=== PATIENT | female | born 1970 | race Asian ===

== ENCOUNTER 2017-08-17 13:35 | Emergency (ER) | payer MEDICAID, OTHER ==
[~2017-08-17] VITALS: Ht 152.4 cm; Wt 75.5 kg
[2017-08-17 13:39] VITALS: Ht 152.4 cm; Wt 75.5 kg
[2017-08-17] MEDS ORDERED: ACETAMINOPHEN 500 MG TAB PO STA (14:48)
[2017-08-17 15:00] LABS: BASOPHIL # 0.1 10^3/ul (0.0-0.1); BASOPHILS % 0.7 % (0.0-2.0); EOSINOPHILS # 0.6 10^3/ul (0.0-0.5); EOSINOPHILS % 6.9 % (0.0-7.0); HEMATOCRIT 35.8 % (37.0-47.0); HEMOGLOBIN 11.5 g/dl (12.0-16.0); LYMPHOCYTES # 1.7 10^3/ul (0.8-2.9); LYMPHOCYTES % 20.7 % (15.0-51.0); MEAN CORPUSCULAR HEMOGLOBIN 28.7 pg (29.0-33.0); MEAN CORPUSCULAR HGB CONC 32.1 g/dl (32.0-37.0); MEAN CORPUSCULAR VOLUME 89.3 fl (82.0-101.0); MEAN PLATELET VOLUME 9.2 fl (7.4-10.4); MONOCYTE # 0.4 10^3/ul (0.3-0.9); MONOCYTES % 5.1 % (0.0-11.0); NEUTROPHIL # 5.4 10^3/ul (1.6-7.5); NEUTROPHILS % 66.5 % (39.0-77.0); PLATELET COUNT 387 10^3/UL (140-415); RED BLOOD COUNT 4.01 10^6/ul (4.20-5.40); RED CELL DISTRIBUTION WIDTH 13.1 % (11.5-14.5); WHITE BLOOD COUNT 8.1 10^3/ul (4.8-10.8)
[2017-08-17 15:02] LABS: ALBUMIN 4.3 g/dl (3.3-4.9); ALBUMIN/GLOBULIN RATIO 1.13; CALCIUM 8.7 mg/dl (8.4-10.2); CREATININE 0.71 mg/dl (0.44-1.00); POTASSIUM 4.1 mmol/L (3.5-5.1); TOTAL PROTEIN 8.1 g/dl (6.1-8.1)
[2017-08-17 15:04] LABS: ADD UMIC YES; UR ASCORBIC ACID NEGATIVE (NEGATIVE); UR BILIRUBIN (Dip) NEGATIVE (NEGATIVE); UR BLOOD (Dip) 3+ mg/dL (NEGATIVE); UR CLARITY CLEAR (CLEAR); UR COLOR YELLOW (YELLOW); UR GLUCOSE (Dip) NEGATIVE (NEGATIVE); UR KETONES (Dip) NEGATIVE (NEGATIVE); UR LEUKOCYTE ESTERASE (Dip) NEGATIVE Leu/ul (NEGATIVE); UR NITRITE (Dip) NEGATIVE (NEGATIVE); UR RBC > 182 /HPF (0-5); UR SPECIFIC GRAVITY (Dip) 1.011 (1.003-1.030); UR TOTAL PROTEIN (Dip) NEGATIVE (NEGATIVE); UR UROBILINOGEN (Dip) NEGATIVE (NEGATIVE)
--- NOTE | 2017-08-17 15:43 | RADRPT ---
PROCEDURE: US Pelvis CLINICAL INDICATION: vaginal bleeding x 4 mos TECHNIQUE: Multiple sonographic images of the pelvis were obtained utilizing a transabdominal and endovaginal technique. The images were reviewed on a PACS workstation. COMPARISON: None. FINDINGS: The uterus measures 8.3 x 4.2 x 4.4 cm. The endometrial echo complex measures 3 mm in thickness. There is a 1.5 cm posterior submucosal uterine fibroid at the level of the upper body with prominent anterior displacement of the endometrium. The right ovary measures 4.9 x 2.7 x 3.1 cm. The left ovary is not identified. There is normal vascu lar flow in the right ovary. There is a 1.6 cm well-circumscribed round hyperechoic lesion without significant vascular flow in t he right ovary which is likely a dermoid cyst. No significant pelvic free fluid is identified. IMPRESSION: 1.5 cm submucosal fibroid with prominent displacement of the endometrium, as above. 1.6 cm well-circumscribed hyperechoic lesion in the right ovary has typical sonographic features of a dermoid cyst. Nonvisualization of the left ovary. RPTAT: EE Physician Kae Date Time Electronically viewed and signed by Physician Kae on 08/17/2017 15:43 /
--- NOTE | 2017-08-17 15:48 | ERD ---
ER Documentation Chief Complaint Date/Time DATE: 08/17/17 TIME: 15:46 Chief Complaint heavy vaginal bleeding x 4 months HPI This is a 47-year-old female who presents here to the emergency department today with her sister for complaints of vaginal bleeding for the past months. Patient states that in March she had a Pap smear but did not ever get the results. States that she got her menstrual cycle twice. States that since that time she has had continued bleeding. States she went to the pants closer today who sent her here to the emergency department for further evaluation. She has some mild pelvic pain. Denies any fevers or chills, vomiting. ROS All systems reviewed and are negative except as per history of present illness. Medications Home Meds Active Scripts Acetaminophen* (Tylophen*) 500 Mg Capsule, 1 CAP PO Q6H Y for PAIN AND OR ELEVATED TEMP, #30 CAP Prov:CHINTAN CARTY PA-C 08/17/17 Naproxen* (Naprosyn*) 500 Mg Tablet, 500 MG PO BID Y for PAIN AND/OR INFLAMMATION, #30 TAB Prov:CHINTAN CARTY PA-C 08/17/17 Allergies Allergies: Coded Allergies: No Known Allergy (Unverified , 08/17/17) PMhx/Soc Medical and Surgical Hx: pt denies Medical Hx, pt denies Surgical Hx Hx Alcohol Use: No Hx Substance Use: No Hx Tobacco Use: No Smoking Status: Never smoker Physical Exam Vitals Vital Signs Date Time Temp Pulse Resp B/P Pulse Ox O2 Delivery O2 Flow Rate FiO2 08/17/17 13:39 98.5 96 18 168/97 99 Physical Exam Const: NAD Head: Atraumatic Eyes: Normal Conjunctiva ENT: Normal External Ears, Nose and Mouth. Neck: Full range of motion..~ No meningismus. Resp: Clear to auscultation bilaterally Cardio: Regular rate and rhythm, no murmurs Abd: Soft, suprapubic tenderness, non distended. Normal bowel sounds. No tenderness at McBurney's. Skin: No petechiae or rashes Back: No midline or flank tenderness Ext: No cyanosis, or edema Neur: Awake and alert Psych: Normal Mood and Affect Result Diagram: 08/17/17 1425 08/17/17 1425 Results 24 hrs Laboratory Tests Test 08/17/17 14:25 White Blood Count 8.110^3/ul Red Blood Count 4.0110^6/ul Hemoglobin 11.5g/dl Hematocrit 35.8% Mean Corpuscular Volume 89.3fl Mean Corpuscular Hemoglobin 28.7pg Mean Corpuscular Hemoglobin Concent 32.1g/dl Red Cell Distribution Width 13.1% Platelet Count 00798^3/UL Mean Platelet Volume 9.2fl Neutrophils % 66.5% Lymphocytes % 20.7% Monocytes % 5.1% Eosinophils % 6.9% Basophils % 0.7% Nucleated Red Blood Cells % 0.0/100WBC Neutrophils # 5.410^3/ul Lymphocytes # 1.710^3/ul Monocytes # 0.410^3/ul Eosinophils # 0.610^3/ul Basophils # 0.110^3/ul Nucleated Red Blood Cells # 0.010^3/ul Urine Color YELLOW Urine Clarity CLEAR Urine pH 7.0 Urine Specific [place] 1.011 Urine Ketones NEGATIVEmg/dL Urine Nitrite NEGATIVEmg/dL Urine Bilirubin NEGATIVEmg/dL Urine Urobilinogen NEGATIVEmg/dL Urine Leukocyte Esterase NEGATIVELeu/ul Urine Microscopic RBC > 182/HPF Urine Microscopic WBC 0/HPF Urine Hemoglobin 3+mg/dL Urine Glucose NEGATIVEmg/dL Urine Total Protein NEGATIVEmg/dl Sodium Level 139mmol/L Potassium Level 4.1mmol/L Chloride Level 107mmol/L Carbon Dioxide Level 22mmol/L Anion Gap 14 Blood Urea Nitrogen 7mg/dl Creatinine 0.71mg/dl Glucose Level 97mg/dl Calcium Level 8.7mg/dl Total Bilirubin 0.0mg/dl Direct Bilirubin 0.00mg/dl Indirect Bilirubin 0.0mg/dl Aspartate Amino Transf (AST/SGOT) 21IU/L Alanine Aminotransferase (ALT/SGPT) 23IU/L Alkaline Phosphatase 72IU/L Total Protein 8.1g/dl Albumin 4.3g/dl Globulin 3.80g/dl Albumin/Globulin Ratio 1.13 Current Medications Medications (Trade) Dose Ordered Sig/Agnes Route PRN Reason Start Time Stop Time Status Last Admin Dose Admin Acetaminophen (Tylenol Tab) 500 mg ONCE STAT PO 08/17/17 14:48 08/17/17 14:49 DC 08/17/17 15:43 DIAGNOSTIC IMAGING REPORT Patient: ALICIA SPARKS : 1970 Age: 47 Sex: F [id number] DOS: 08/17/17 0000 Ordering MD: CHINTAN CARTY PA-C Location: [facility] Room/Bed: PROCEDURE: US Pelvis CLINICAL INDICATION: vaginal bleeding x 4 mos TECHNIQUE: Multiple sonographic images of the pelvis were obtained utilizing a transabdominal and endovaginal technique. The images were reviewed on a PACS workstation. COMPARISON: None. FINDINGS: The uterus measures 8.3 x 4.2 x 4.4 cm. The endometrial echo complex measures 3 mm in thickness. There is a 1.5 cm posterior submucosal uterine fibroid at the level of the upper body with prominent anterior displacement of the endometrium. The right ovary measures 4.9 x 2.7 x 3.1 cm. The left ovary is not identified. There is normal vascular flow in the right ovary. There is a 1.6 cm well-circumscribed round hyperechoic lesion without significant vascular flow in the right ovary which is likely a dermoid cyst. No significant pelvic free fluid is identified. IMPRESSION: 1.5 cm submucosal fibroid with prominent displacement of the endometrium, as above. 1.6 cm well-circumscribed hyperechoic lesion in the right ovary has typical sonographic features of a dermoid cyst. Nonvisualization of the left ovary. RPTAT: EE Physician Kae Date Time Electronically viewed and signed by Physician Kae on 08/17/2017 15:43 RA/ CC: CHINTAN CARTY PA-C Procedures/[facility] This is a 45-year-old female who presents the emergency department today complaining of some lower pelvic pain and vaginal bleeding for the past 4 months. Given this I did obtain a complete workup. Laboratory workup white blood cell count. Her hemoglobin is mildly decreased at 11.5. Platelets are within normal limits. Electrolytes are within normal limits. Glucose is within normal limits. Liver enzymes are within normal limits. UA is negative for infection. There is greater than 182 microscopic red blood cells. Urine test is negative US shows a 1.5 cm submucosal fibroid with prominent displacement of the endometrium. There is a 1.6 cm well-circumscribed round hypoechoic lesion which is likely a dermoid cyst. There is normal vascular flow in the right ovary. Left ovary is not identified. Patient symptoms at this time is consistent with vaginal bleeding and dysfunctional uterine bleeding which may be related to her fibroids. I have explained this to her. Patient was given Tylenol here in the emergency department. Patient declined anything stronger. She will be given a prescription for Naprosyn and Tylenol for home and instructed to follow back up with her pants closer. I have also given her a list of other gynecology referrals. Patient is hemodynamically stable and she does not require transfusion at this time. At this time the patient is stable for discharge and outpatient management. Patient should follow up with their PCP in the next 1-2 days. They may return to the emergency department sooner for any persistent or worsening of symptoms. Patient understood and agreed with the plan. Departure Diagnosis: Primary Impression: Vaginal bleeding Condition: CHINTAN Bhandari PA-C Aug 17, 2017 15:48
[2017-08-17] MEDS ORDERED: NAPR-260 PO (16:27)
[2017-08-17] MEDS ORDERED: ACET500C5 PO (16:28)
[2017-08-17 16:30] VITALS: BP 133/72; PULSE 76; RESP 18; TEMP 98.1
== END 2017-08-17 16:39 | disposition home or self-care (01) ==
LOC: FTE 13:35
DX: N93.9 Abnormal uterine and vaginal bleeding, unspecified (principal); R10.2 Pelvic and perineal pain
CPT/HCPCS: 76830; 76856; 80053; 81001; 85025; Z7502; Z7610